=== PATIENT | male | born 1990 | race Caucasian/White ===

== ENCOUNTER 2018-05-16 15:03 | Inpatient (IN) | payer OTHER ==
[~2018-05-16] VITALS: Ht 165.1 cm; Wt 59.0 kg
--- NOTE | 2018-05-16 15:23 | NUR ---
Intake Assessment Assessment done at intake office. Patient does not appear intoxicated. Patient is alert & oriented x4. He presents with a pale skin, multiple scabs on his face, tearful during intake, unshaven, disheveled, avoids eye contact. He has flat affect, anhedonia, and depressed mood. Speech is soft, clear and audible. No complaints of shortness of breath noted. Vitals taken immediately B/P 103/64, HR 95, Resp 16, Pulse Ox 99%, Temp 98.1. Pt is coherent and is able to sign consent & respond to questions appropriately. Explained to pt unit protocols such as Q4H Vitals signs check & regarding destruction of any controlled substances brought to facility and handling of all medications. Pt verbalized understanding.
[2018-05-16] MEDS ORDERED: EMTR1TAB6 PO (15:50)
[2018-05-16] MEDS ORDERED: BIOT1TAB16 PO (15:51)
[2018-05-16] MEDS ORDERED: ESCI20TA PO (15:51)
[2018-05-16] MEDS ORDERED: ALLA20GE TP (15:53)
[2018-05-16] MEDS ORDERED: [UNRECOGNIZED DRUG - CODE] TP (15:53)
[2018-05-16] MEDS ORDERED: FINA5TAB11 PO (15:53)
[2018-05-16 16:04] VITALS: BP 103/64
[2018-05-16 16:11] LABS: *AMPHETAMINE, URINE POSITIVE (NEGATIVE); *BARBITURATE, URINE NEGATIVE (NEGATIVE); *CANNABINOID, URINE POSITIVE (NEGATIVE); *COCCAINE, URINE NEGATIVE (NEGATIVE); *OPIATE, URINE POSITIVE (NEGATIVE); *PHENCYCLIDINE SCREEN,URINE NEGATIVE (NEGATIVE)
--- NOTE | 2018-05-16 16:26 | NUR ---
ADMISSION NOTE: Patient is a 27 y/o male admitted at [facility] Unit for medically supervised withdrawal from ETOH, Benzos, and Opiates. Pt reports using meth and marijuana. Patient on the unit at 1600. Body search done and skin check performed, no contraband found. Skin noted to have tract cohen on bilateral arms, not open. He has a possible infection on his right side back/shoulder. Area red, swollen, skin sloughing, and scabbed. He has multiple scabs on his face. Pt is 5'5" tall and weighs 130 lbs in a standing scale. Pt is cooperative during assessment. Patient is oriented to floor unit and room, educated on proper use of call light with good verbal understanding. Pt reports NKA and wishes to be full Code. Pt not intoxicated and denies withdrawal symptoms. COWS and CIWA deferred. Patient is alert & oriented x4. He appears disheveled, unkempt & uncombed. He presents with a pale skin, multiple scabs on his face, tearful during intake, unshaven, disheveled, avoids eye contact. He has flat affect, anhedonia, and depressed mood. He is tearful and worried about detox since he has been using for 18 months. He has soft and clear speech. No complaints of shortness of breath noted. Bowel sounds active in all quadrants. Last Bowel movement was today 05/16/2018. Lung Sounds clear throughout. Pt denies SOB, cough or chest pain at this time. Pt denies visual, auditory & tactile hallucinations. Pt has a PCP named Dr. Dr. Muro in [facility]. Pt has medical history of anxiety and depression. Pt denies any hx of suicide attempt or involuntary admission to a psychiatric facility. Pt currently denies SI/HI. Blood Labs were drawn. Pt has overdosed twice and did not receive medical care. Pt reports he has blacked out numerous times r/t ETOH and Benzo use. Pt was able to provide urine sample for drug screen upon admission and is voiding clear yellow urine with no problems. Pt has been to [place] in [address] [facility] and [facility] in 2012 in [place]. Substance use: 1. Benzo- Pt uses Xanax intermittently. He last took 3 mg today at 10:00AM. Pt uses Valium 10 mg QHS. He last used last night at 2200. Pt uses Klonopin 2mg daily, he last used yesterday. He has been using benzos for the last 18 months. Pt has used benzos since he was 20 years old. 2. Vodka- Pt drink 480 ml two to three times/week for the last 18 months. He last had 120ml of Vodka about 4 hours ago on the plane. He has been drinking since he was 18 years old. 3. Heroin- Pt uses 1 gram IV daily for the last 18 months. He has used heroin since he was 22 years old. He last used .75 gm today at 10:00AM. 4.Meth- Pt reports he uses meth 1 gram daily via IV for the last 18 months. He last used 1/2 gram today at 10:00AM. He has used meth since he was 22 years old. 5. Marijuana- pt reports he smoke unspecified amount daily since he was 18 years. Old. Pt states "I started drinking and using drugs because my friends did it. Now I'm hooked on the heroin and I continue to use to cope with my anxiety and depression". Pt reports he wants to get sober, "I'm tired of living this life style. My mom helped me get into this detox." Pt reports triggers for relapse are increased cravings. In the past barriers for staying sober were, "I didn't want to get sober. I was forced into treatment when I was younger". His mother is his support system and she is sober. He lives alone and in unemployed. Pt reports consequences of using are he dropped out of school, suffered relationship loss, job loss and made him more depressed. Pt reports he has tried to get sober about 15 times. His longest times being sober was for six months in 2016. Pt plans on going to [facility], getting a sponsor, and going to AA or NA. Fall & Seizure precautions are in place. Continue to follow MD plan of care and offer support and encouragement as needed. MD is aware of Pt admission and orders are placed. Educated patient about plan of care including detox, group therapy, individual therapy, and discharge planning. Encouraged patient to verbalized feelings. Encourage fluids as tolerated. Safety precautions are in place. Bed locked in lowest position. Both side rails padded & up. Call light within pt's reach.
[2018-05-16] MEDS ORDERED: MIRALAX 17 GM POWD.PACK PO PRN ×2 (16:45)
[2018-05-16] MEDS ORDERED: IBUPROFEN 600 MG TABLET PO PRN ×2 (16:45)
[2018-05-16] MEDS ORDERED: HYDROXYZINE PAMOATE 25 MG CAPSULE PO PRN (16:45)
[2018-05-16] MEDS ORDERED: LORAZEPAM 1 MG TABLET PO PRN ×3 (16:45)
[2018-05-16] MEDS ORDERED: diphenhydrAMINE 50 MG CAPSULE PO PRN ×2 (16:45)
[2018-05-16] MEDS ORDERED: METHOCARBAMOL 750 MG TABLET PO PRN (16:45)
[2018-05-16] MEDS ORDERED: ONDANSETRON 4 MG/2 ML VIAL IM PRN ×2 (16:45)
[2018-05-16] MEDS ORDERED: BUPRENORPHINE HCL 2 MG TAB.SUBL SL PRN (16:45)
[2018-05-16] MEDS ORDERED: LOPERAMIDE HCL 2 MG CAPSULE PO PRN ×4 (16:45)
[2018-05-16] MEDS ORDERED: LORAZEPAM 2 MG/1 ML VIAL IM PRN (16:45)
[2018-05-16] MEDS ORDERED: MAGNESIUM HYDROXIDE 30 ML LIQUID UDC PO PRN ×2 (16:45)
[2018-05-16] MEDS ORDERED: MAG HYDROX/AL HYDROX/SIMETH 30 ML LIQUID UDC PO PRN ×2 (16:45)
[2018-05-16] MEDS ORDERED: ACETAMINOPHEN 325 MG TABLET PO PRN ×2 (16:45)
[2018-05-16] MEDS ORDERED: CLONIDINE HCL 0.1 MG TABLET PO PRN ×2 (16:45)
[2018-05-16] MEDS ORDERED: ONDANSETRON ODT 4 MG TAB.RAPDIS SL PRN ×2 (16:45)
[2018-05-16 17:28] LABS: BASOPHILS % (AUTO) 0.6 % (0.0-2.0); EOSINOPHILS # (AUTO) 0.2 K/uL (0.0-0.7); EOSINOPHILS % (AUTO) 5.2 % (0.0-7.0); HEMATOCRIT 38.3 % (36.7-47.1); HEMOGLOBIN 13.5 g/dL (12.5-16.3); LYMPHOCYTES # (AUTO) 1.4 K/uL (20.0-40.0); MEAN CORPUSCULAR HEMOGLOBIN 31.3 uug (23.8-33.4); MEAN CORPUSCULAR HGB CONC 35 g/dL (32.5-36.3); MONOCYTES # (AUTO) 0.5 K/uL (2.0-10.0); MONOCYTES % (AUTO) 14.9 % (0.0-11.0); NEUTROPHILS # (AUTO) 1.5 K/uL (1.8-8.9); NEUTROPHILS % (AUTO) 41.3 % (38.5-71.5); PLATELET COUNT (AUTO) 205 K/uL (152-348); WHITE BLOOD COUNT (AUTO) 3.7 K/uL (3.6-10.2)
[2018-05-16 17:37] LABS: ALANINE AMINOTRANSFERASE 26 U/L (16-63); ALKALINE PHOSPHATASE 70 U/L (50-136); ASPARTATE AMINOTRANSFERASE 16 U/L (15-37); BILIRUBIN,TOTAL 0.4 mg/dL (0.2-1.0); CARBON DIOXIDE 31 mmol/L (21-32); CHLORIDE 103 mmol/L (98-107); CREATININE 0.9 mg/dL (0.6-1.3); GLUCOSE 102 mg/dL (74-106); MAGNESIUM 1.9 mg/dL (1.8-2.4); POTASSIUM 3.9 mmol/L (3.5-5.1); TOTAL PROTEIN, SERUM 6.9 g/dL (6.4-8.2); UREA NITROGEN, BLOOD 11 mg/dL (7-18)
[2018-05-16 17:39] LABS: ETHANOL < 3 MG/DL (0-0)
[2018-05-16 17:45] LABS: THYROID STIMULATING HORMONE 0.638 mIU/mL (0.358-3.740)
--- NOTE | 2018-05-16 18:32 | NUR ---
End of Shift Patient is a 27 yr old male who was admitted for a medically supervised withdrawal from ETOH, Benzos, and opiates, pt also reports using meth. COWS and CIWA deferred r/t recent substance use and Pt denies c/o withdrawal symptoms. PO fluids 500 ml, void x1. All safety measures in place, bed locked, low positions, side rails up X2. Will continue to monitor for withdrawal symptoms. Endorsed to PM shift.
[2018-05-16 20:00] VITALS: BP 97/56
--- NOTE | 2018-05-16 20:00 | NUR ---
Start of Shift Patient was admitted during dayshift for multiple substances, including Alcohol, Benzodiazepines and Opiates. Patient appears melancholic, isolative and emotionally labile. Patient verbalized feelings of guilt for not seeking treatment over the past 18 months while he was dependent on substances. He c/o increasing anxiety and noted to be disheveled. He c/o generalized muscle pain=2/10. He is also noted to have track cohen on bilateral upper extremities and scabbing on his back. He is on PRN medications, 4-day Subutex and 4-day Ativan tapers to start tomorrow. Fall, universal, seizure and safety prec in place. Call light within reach. Last COWS=5, CIWA=5. Will continue to monitor.
[2018-05-17] VITALS: BP 95/63
[2018-05-17 04:00] VITALS: BP 118/74
[2018-05-17] MEDS: HYDROXYZINE PAMOATE 25 MG CAPSULE PO PRN (04:10)
--- NOTE | 2018-05-17 04:15 | NUR ---
PRN Subutex, Ativan, Robaxin and Vistaril Patient woke up and c/o feeling anxious, noted to be emotional, teary-eyed, with gross tremors, nasal congestion and with intermittent nausea. Patient observed to be depressed. No SI noted. Patient also c/o chills and generalized muscle pain=7/10. COWS=14, CIWA=16. Administered Subutex 4 mg SL PRN, Ativan 2 mg PO PRN, Robaxin 750 mg PO PRN and Vistaril 50 mg PO PRN. Will reassess.
--- NOTE | 2018-05-17 04:45 | NUR ---
Subutex reassess Patient appears less anxious, less tremulous and verbalized, "I feel a little better." Patient continues to be emotional. COWS=11.
--- NOTE | 2018-05-17 05:15 | NUR ---
Ativan, Robaxin and Vistaril reassess Patient verbalized that his anxiety was alleviated and he is noted to have less tremors. He also verbalized that his chills has lessened. Current generalized pain level=2-3/10. CIWA=10.
--- NOTE | 2018-05-17 07:16 | NUR ---
End of Shift Patient has started to exhibit and c/o withdrawal symptoms in the later part of the shift. Patient admitted for multiple substances, including Alcohol, Benzodiazepines and Opiates. Patient continues to be melancholic, isolative and emotionally labile. He is teary-eyed, with poor appetite and has a tangential thought process. Patient was encouraged to increase oral fluid intake, eat healthy snacks and finish meals served. He appears disheveled and c/o generalized muscle pain with current pain level 2-3/10. PRN medications Subutex, Ativan, Robaxin and Vistaril were administered and they were effective. 4-day Subutex and 4-day Ativan tapers to start today. Fall, universal, seizure and safety prec in place. Call light within reach. Last COWS=11, CIWA=10 and slept for 11 hours. Endorsed to AM shift nurse for continuity of care.
[2018-05-17 08:00] VITALS: BP 90/60
--- NOTE | 2018-05-17 08:00 | NUR ---
START OF SHIFT Pt is a 27 yr old male, AA&Ox4. Pt was admitted on 05/16/18 for Opiate/Benzo withdrawal and is on 4 day Ativan and 4 day Subutex taper as ordered. Received report from night monitor nurse. pt was given Ativan PRN, Subutex PRN, Robaxin PRN and Vistaril PRN during the night. Last COWS score was 11 and CIWA score was 10. Pt slept for 11 hrs. Pt is currently laying in bed, avoidant in eye contact. Pt is c/o anxiety, agitation, sweats and chill, and body aches. Pt is noted with facial sweats and fine tremors on BUE. Pt was encouraged increase fluid intake for hydration. Safety precautions observed. Will continue to monitor.
[2018-05-17] MEDS ORDERED: TUBERCULIN,PURIF.PROT.DERIV. 5 TU/0.1 ML TEST ID ONE ×2 (09:00)
[2018-05-17] MEDS ORDERED: MULTIVITAMINS,THERAPEUTIC TABLET PO SCH (09:00)
[2018-05-17] MEDS: MULTIVITAMINS,THERAPEUTIC TABLET PO SCH (09:20)
[2018-05-17] MEDS: LORAZEPAM 1 MG TABLET PO SCH ×4 (09:20→20:37)
[2018-05-17] MEDS: BUPRENORPHINE HCL 2 MG TAB.SUBL SL SCH ×3 (09:21→20:37)
[2018-05-17 12:00] VITALS: BP 108/62
[2018-05-17] MEDS: FINASTERIDE 5 MG TABLET PO SCH (13:15)
[2018-05-17] MEDS: [UNRECOGNIZED DRUG - OTHER] PO SCH (14:04)
--- NOTE | 2018-05-17 14:58 | NUR ---
Therapist prompted client to attend all group therapy sessions daily.
[2018-05-17 16:30] VITALS: BP 98/56
[2018-05-17] MEDS ORDERED: 4 DAY TAPER OF LORAZEPAM -SERENITY PROTOCOL PO PRN (16:45)
[2018-05-17] MEDS ORDERED: 4 DAY TAPER BUPRENORPHINE -SERENITY PROTOCOL SL PRN (16:45)
--- NOTE | 2018-05-17 19:10 | NUR ---
END OF SHIFT Pt is a 27 yr old male, AA&Ox4. Pt was observed with increase fatigue and remained in his room throughout the day. Pt states, "I feel depressed and don't want to go to group. I miss my mom and my dog". Pt was observed emotional and crying. Pt was redirect and was able to call his mother with case management. Pt was observed with facial sweats, fine tremors and avoidant in eye contact. Skin is warm and clammy to touch. Pt was seen and examined by Dr. Bertrand with new order for wound consult for open scab on right upper back. Consult is pending. Last COWS score was 11 and CIWA score was 11 Safety precautions observed. Endorsed to manufacturing supervisor 2nd shift nurse to continue with care.
[2018-05-17 20:00] VITALS: BP 105/62
--- NOTE | 2018-05-17 20:00 | NUR ---
Start of Shift Patient is noted to be anxious, emotional, teary-eyed and withdrawn. He is observed to be avoiding conversation and eye contact. He verbalized missing his dog back at his home in [place], [place]. Patient is melancholic and labile. He was a poor appetite and was encouraged to adhere to the meals served as well as increase oral fluid intake. He is noted to have sweats, appears pale and has tremors. He appears disheveled and unkempt. Patient is on 4-day Subutex and 4-day Ativan tapers that started today. Fall, universal, seizure and safety prec in place. Call light within reach. Last COWS=10, CIWA=10. Will continue to monitor.
[2018-05-18] VITALS: BP 96/57
--- NOTE | 2018-05-18 04:00 | NUR ---
COWS and CIWA deferred Patient asleep on bed with no SOB nor facial grimacing noted. RR=14. COWS and CIWA deferred per MD order.
--- NOTE | 2018-05-18 07:20 | NUR ---
End of Shift Patient continues to be anxious, emotional, teary-eyed and withdrawn. He is still withdrawn and is avoidant with conversation. He is teary-eyed and labile. He continues to have a poor appetite. He did not have a dinner last night. He was offered a [place] sandwich and finished half of it. He continues to have sweats, tremors and appears disheveled. Encouraged patient to take a shower this morning. No PRNs administered during the shift. Patient will start second day of his 4-day Subutex and 4-day Ativan tapers. Fall, universal, seizure and safety prec in place. Call light within reach. Last COWS=9, CIWA=9 and slept for 8 hours. Endorsed to PM shift nurse for continuity of care.
[2018-05-18 08:00] VITALS: BP 103/60
--- NOTE | 2018-05-18 08:00 | NUR ---
START OF SHIFT Pt is a 27 yr old male, AA&Ox4. Pt was admitted on 05/16/18 for Opiate/Benzo withdrawal and is on 4 day Ativan and 4 day Subutex taper as ordered. Received report from night order selector nurse. No PRN's were given during the night. Last COWS score was 9 and CIWA score was 9. Pt slept for 8 hrs. Pt is currently laying in bed avoiding eye contact and covering his face the blanket. Pt was observed wtih facial sweats and fine tremors on BUE. Pt c/o abdominal cramping. Pt was encouraged increase fluid intake for hydration. Safety precautions observed. Will continue to monitor.
[2018-05-18 08:07] LABS: HEPATITIS B SURFACE AG Negative (Negative)
[2018-05-18] MEDS: FINASTERIDE 5 MG TABLET PO SCH (09:00)
[2018-05-18] MEDS ORDERED: BUPRENORPHINE HCL 2 MG TAB.SUBL SL SCH (09:00)
[2018-05-18] MEDS ORDERED: LORAZEPAM 1 MG TABLET PO SCH (09:00)
[2018-05-18] MEDS: LORAZEPAM 0.5 MG TABLET PO SCH ×3 (09:17→21:01)
[2018-05-18] MEDS: [UNRECOGNIZED DRUG - OTHER] PO SCH (09:18)
[2018-05-18] MEDS: MULTIVITAMINS,THERAPEUTIC TABLET PO SCH (09:18)
[2018-05-18] MEDS: ESCITALOPRAM OXALATE 10 MG TABLET PO SCH (09:18)
--- NOTE | 2018-05-18 11:34 | NUR ---
PRN GIVEN Pt was c/o abdominal cramping and upset stomach. Pt was given Maalox 30ml suspension. Pt was encouraged increase fluid intake. Will continue to monitor.
[2018-05-18 12:00] VITALS: BP 99/48
--- NOTE | 2018-05-18 12:31 | NUR ---
Therapist prompted client to attend group therapy.
--- NOTE | 2018-05-18 12:34 | NUR ---
PRN RE-ASSESSMENT Maalox PRN was effective. Encouraged increase fluid intake. Will continue to monitor.
--- NOTE | 2018-05-18 14:01 | NUR ---
WOUND CARE CONSULT: PT PRESENTS WITH RT UPPER BACK WOUND, PRESENT ON ADMISSION. RECOMMENDATIONS MADE FOR WOUND CARE AND DISCUSSED WITH NURSING STAFF. WILL SEE PRN. VALDEZ IN AGREEMENT WITH PLAN OF CARE. Addendum: 05/18/18 at 1402 by ROMEO AQUINO RN Amended: Links added.
[2018-05-18] MEDS: BUPRENORPHINE HCL 2 MG TAB.SUBL SL SCH ×2 (14:52→21:01)
[2018-05-18] MEDS: BACITRACIN/POLYMYXIN B OINT 15 GM TUBE TOP SCH (15:11)
[2018-05-18 16:00] VITALS: BP 103/50
--- NOTE | 2018-05-18 19:10 | NUR ---
END OF SHIFT Pt is a 27 yr old male, AA&Ox4. Pt was admitted on 05/16/18 for Opiate/Benzo withdrawal and is on 4 day Subutex taper and 4 day Ativan taper as ordered. Pt has been cooperative with medication regimen and was encouraged to attend group therapy. Pt was c/o increase anxiety, agitation, abdominal cramping and upset stomach, sweats and chills. Pt was observed with facial sweats, flat affect and fine tremors on BUE. Pt was given Maalox PRN as ordered. Medication was effective. Last COWS score was 10 and CIWA score was 11 at 1600. Pt was encouraged increase fluid intake for hydration. Endorsed to rubber tile floor layer nurse to continue with care.
[2018-05-18 20:00] VITALS: BP 110/66
--- NOTE | 2018-05-18 20:00 | NUR ---
Start of Shift Patient is withdrawn, avoids conversation and verbalized preference of being alone. Patient has sweating, bilateral hand tremors and is emotionally labile and continues to verbalize missing his dog back home. Patients appetite is noted to be better today than yesterday, having finished 75% of his dinner. Patient was encouraged to continue to adhere to the meals served as well as increase oral fluid intake. He appears disheveled as well. Patient is on his second day of the 4-day Subutex and 4-day Ativan taper. Fall, universal, seizure and safety prec in place. Call light within reach. Last COWS=9, CIWA=9. Will continue to monitor.
[2018-05-19] VITALS: BP 102/76
--- NOTE | 2018-05-19 04:00 | NUR ---
COWS and CIWA deferred Patient asleep on bed with no SOB nor facial grimacing noted. RR=14. COWS and CIWA deferred per MD order.
--- NOTE | 2018-05-19 07:17 | NUR ---
End of Shift Patient continues to be withdrawn, melancholic and isolative. Patient expressed that he does not want to interact with others at this time. He continues to have sweats, bilateral hand tremors and easily becomes teary-eyed. Patient is noted to have poor appetite. Patient was continuously encouraged to increase food and fluid intake. No PRNs administered during the shift. Patient is on his 3rd day of the 4-day Subutex and 4-day Ativan taper today. Fall, universal, seizure and safety prec in place. Call light within reach. Last COWS=8, CIWA=7 and slept for 7 hours. Endorsed to AM shift nurse for continuity of care.
[2018-05-19 08:00] VITALS: BP 92/58
--- NOTE | 2018-05-19 08:00 | NUR ---
START OF SHIFT Pt is a 27 yr old male, AA&Ox4. Pt was admitted on 05/16/18 for Opiate/Benzo withdrawal and is on 4 day Subutex taper and 4 day Ativan taper as ordered. Received report from maintenance supervisor 2nd shift. No PRN's were given during the night. Last COWS score was 8 and CIWA score was 7. Pt is observed with facial sweats and fine tremors on BUE. Pt is observed with flat affect. Pt was stating of wanting to be discharged earlier than his due date because he states of feeling "bored" and his withdrawal symptoms are minimal. Pt was encouraged to attend group therapy and activities. Safety precautions observed. Will continue to monitor.
[2018-05-19] MEDS ORDERED: LORAZEPAM 1 MG TABLET PO SCH (09:00)
[2018-05-19] MEDS: MULTIVITAMINS,THERAPEUTIC TABLET PO SCH (09:57)
[2018-05-19] MEDS: [UNRECOGNIZED DRUG - OTHER] PO SCH (09:57)
[2018-05-19] MEDS: LORAZEPAM 0.5 MG TABLET PO SCH ×2 (09:58→21:26)
[2018-05-19] MEDS: ESCITALOPRAM OXALATE 10 MG TABLET PO SCH (09:58)
[2018-05-19] MEDS: BUPRENORPHINE HCL 2 MG TAB.SUBL SL SCH ×3 (09:58→21:26)
[2018-05-19] MEDS: BACITRACIN/POLYMYXIN B OINT 15 GM TUBE TOP SCH (09:59)
[2018-05-19 12:00] VITALS: BP 119/76
[2018-05-19 16:00] VITALS: BP 113/68
--- NOTE | 2018-05-19 19:20 | NUR ---
END OF SHIFT Pt is a 27 yr old male, AA&Ox4. Pt was admitted on 05/16/18 for Opiate/Benzo withdrawal and is on 4 day Subutex taper and 4 day Ativan taper as ordered. Pt was asking to be discharge earlier than due date but was spoken to Dr. Bertrand and encouraged him to complete treatment as plan. Pt agreed. Pt was observed attending group therapy. Pt was observed with increase anxiety m/b difficulty staying still. Pt was observed with facial sweats, flat affect and fine tremors on BUE. No PRNs were given during the day. Last COWS score was 8 and CIWA score was 9 at 1600. Pt was encouraged increase fluid intake for hydration. Endorsed to night time babysitter nurse to continue with care.
[2018-05-19 20:00] VITALS: BP 126/71
--- NOTE | 2018-05-19 20:00 | NUR ---
Start of Shift Patient is noted to be more interactive but verbalized intermittent bursts of emotions. Patient continues to be melancholic and is labile. He is observed to have bilateral hand tremors and is anxious. Patients appetite continues to improve and he finished 75% of meal served this evening. Emphasized on patient the importance of appropriate food and fluid intake for recovery. Patient is on 3rd day of his Subutex and Ativan tapers. Fall, universal, seizure and safety prec in place. Call light within reach. Last COWS=8, CIWA=8. Will continue to monitor.
[2018-05-20] VITALS: BP 118/74
--- NOTE | 2018-05-20 04:00 | NUR ---
COWS and CIWA Deferred Patient asleep on bed, with no SOB nor facial grimacing noted. COWS and CIWA deferred per MD order. RR=15.
--- NOTE | 2018-05-20 07:27 | NUR ---
End of Shift Patient is noted to become more engaging with conversation. Patient identifies depression as one of his major withdrawal symptoms. He continues to be emotionally labile but observed to be less intense as compared to the day of admission. He is observed to have bilateral hand tremors and with erratic episodes of anxiety. Educated patient about useful therapeutic tools which facilitate expression of feelings. Patient is on 4th day of his 4-day Subutex and 4-day Ativan tapers. Fall, universal, seizure and safety prec in place. Call light within reach. Last COWS=7, CIWA=6 and slept for 7 hours. Endorsed to AM shift nurse for continuity of care.
--- NOTE | 2018-05-20 07:30 | NUR ---
Start of Shift notes: Received endorsement from night nurse. Patient is a 27 year old male admitted for opiate/BZO/ETOH withdrawal who was placed on a 5-day Ativan and 4-day Subutex taper as ordered. No adverse reactions noted. Per night report, patient was not given any PRNs. Last . Slept for a total of 7 hours. Received patient in his room. Room appears messy. Clothes are all over the floor. He covers his face with a blanket intermittently. He is seen with eyes closed but arousable when his name is called. Appears flushed, disheveled and unkempt. Noted with restlessness and gross tremors to BUE. He also appears anxious, agitated and irritable. Educated patient on his current plan of care for the day and his medication regimen. Encouraged oral fluid intake and encouraged group participation to learn new skills to prevent relapse. All needs met and attended. Will continue to monitor.
[2018-05-20 08:00] VITALS: BP 93/51
[2018-05-20] MEDS: [UNRECOGNIZED DRUG - OTHER] PO SCH (08:56)
[2018-05-20] MEDS: ESCITALOPRAM OXALATE 10 MG TABLET PO SCH (08:57)
[2018-05-20] MEDS: BACITRACIN/POLYMYXIN B OINT 15 GM TUBE TOP SCH (08:57)
[2018-05-20] MEDS: MULTIVITAMINS,THERAPEUTIC TABLET PO SCH (08:57)
[2018-05-20] MEDS ORDERED: LORAZEPAM 1 MG TABLET PO SCH (09:00)
[2018-05-20] MEDS ORDERED: BUPRENORPHINE HCL 2 MG TAB.SUBL SL SCH (09:00)
[2018-05-20] MEDS ORDERED: LORAZEPAM 0.5 MG TABLET PO SCH (09:00)
[2018-05-20 12:00] VITALS: BP 100/62
[2018-05-20 16:00] VITALS: BP 106/68
--- NOTE | 2018-05-20 19:12 | NUR ---
End of Shift Notes: Patient completed his 4-day Ativan and 4-day Subutex taper as ordered. No adverse reactions noted. VS monitored closely. No significant abnormalities noted. Withdrawal symptoms were closely monitored. Initial COWS 9/CIWA 11, patient presented with gross tremors, intermittent perspiration, restlessness, irritability, chills, hot flashes, and generalized discomfort. Last COWS 7/CIWA 9. Patient verbalizes that Subutex and Ativan has been effective in reducing his withdrawal symptoms. He was able to participate in group and activities despite his withdrawal symptoms. Appetite good. All needs met and attended. Will continue to monitor closely.
[2018-05-20] MEDS: HYDROXYZINE PAMOATE 25 MG CAPSULE PO PRN (19:45)
--- NOTE | 2018-05-20 19:45 | NUR ---
Start of Shift Patient Received. Per endorsement, patient is a 27 year old male that has completed a modified 4 day Ativan and 4 day Subutex taper. Patient is set for discharge tomorrow 05/21/18 to [facility]. No PRN medications administered. Wound treatment continues to right shoulder. Last noted COWS 7 and CIWA 9. Upon rounds patient is noted in bed sleeping but was easily awakened to verbal stimuli. Patient is noted with increased anxiety, emotionally labile, agitated, and tremulous. PRN Vistaril administered. Patient requested to go out to smoking patio with peers. All needs attended to promptly. Will continue plan of care as ordered.
[2018-05-20 20:06] VITALS: BP 122/70
--- NOTE | 2018-05-20 20:45 | NUR ---
PRN Medication Reassessment Patient is noted returning from smoking patio. Patient is able to verbalize "the medication helped calm me down." PRN Vistaril noted to be effective. Will continue to monitor.
--- NOTE | 2018-05-21 00:28 | NUR ---
COWS, CIWA, and Vitals Patient is noted in bed with eyes closed. Breathing even and non labored. No signs of restlessness or facial grimacing noted. Patient refused vitals. CIWA and COWS not able to be completed as per order. Will continue to monitor.
--- NOTE | 2018-05-21 04:20 | NUR ---
COWS and CIWA Assessment Patient is noted in bed with eyes closed. Breathing even and non labored. Patient refused vitals. NO signs of restlessness or facial grimacing noted. CIWA and COWS not able to be completed as per order. Will continue to monitor.
--- NOTE | 2018-05-21 06:52 | NUR ---
End of Shift Patient is noted in bed with eyes closed. Breathing even and non labored. No signs of restlessness or facial grimacing noted. Patient is a 27 year old male that has completed a modified 4 day Ativan and 4 day Subutex taper. Patient is set for discharge today 05/21/18 to [facility]. Patient continued to be monitored for increased signs and symptoms of withdrawal which include anxiety, agitation, chills, sweats, and tremors. Patient was noted to be emotionally labile. Patient received PRN Vistaril with medication noted to be effective. Last noted COWS 7 and CIWA 10. Patient noted to sleep a total of 7 hours. Wound treatment continues to right shoulder. All needs attended to promptly. Will endorse to continue plan of care as ordered.
--- NOTE | 2018-05-21 07:30 | NUR ---
Start of shift note; Received report from night nurse. Patient is a 27 year old male admitted on 05/16/18 for Opiate/ Benzodiazepine and ETOH withdrawals. Patient completed 4 day Ativan and 4 day Subutex taper. Patient is AOx4, presented with anxiety, complaining of muscle aches and intermittent sweats. Patient is medically cleared for discharge per MD. Patient to transfer to [facility]. All safety measures secured. Will continue to monitor patient.
[2018-05-21 08:00] VITALS: BP 110/62
[2018-05-21] MEDS: BACITRACIN/POLYMYXIN B OINT 15 GM TUBE TOP SCH (08:36)
[2018-05-21] MEDS: [UNRECOGNIZED DRUG - OTHER] PO SCH (08:36)
[2018-05-21] MEDS: ESCITALOPRAM OXALATE 10 MG TABLET PO SCH (08:36)
[2018-05-21] MEDS: MULTIVITAMINS,THERAPEUTIC TABLET PO SCH (08:36)
[2018-05-21] MEDS ORDERED: NALO4SPR NS (09:25)
--- NOTE | 2018-05-21 09:58 | NUR ---
Discharge note; Patient is AOX4, patient completed treatment without any adverse reactions. Patient is medically cleared for discharge to be transferred to [facility]. All valuables, belongings, prescriptions, medications given to patient. Patient was escorted out of the facility by BONE CHAR KILN OPERATOR. Patient denies any suicidal ideations. Patient left in a stable condition. Met all needs.
== END 2018-05-21 09:58 | disposition other institution (70) | DRG 895 ==
LOC: SRC 15:03
PROVIDERS: ADMIT Internal Medicine; ATTEND Family Medicine Addiction Medicine
PROC: HZ2ZZZZ Detoxification Services for Substance Abuse Treatment (ICD-10-PCS; principal; 2018-05-16)
PROC: HZ31ZZZ Individual Counseling for Substance Abuse Treatment, Behavioral (ICD-10-PCS; 2018-05-18)
PROC: HZ41ZZZ Group Counseling for Substance Abuse Treatment, Behavioral (ICD-10-PCS; 2018-05-19)
DX: F10.230 Alcohol dependence with withdrawal, uncomplicated (principal); F33.2 Major depressive disorder, recurrent severe without psychotic features; F11.23 Opioid dependence with withdrawal; Y90.0 Blood alcohol level of less than 20 mg/100 ml; F13.230 Sedative, hypnotic or anxiolytic dependence with withdrawal, uncomplicated; F15.23 Other stimulant dependence with withdrawal; F12.10 Cannabis abuse, uncomplicated; Z79.899 Other long term (current) drug therapy; S40.211A Abrasion of right shoulder, initial encounter; X58.XXXA Exposure to other specified factors, initial encounter; Y92.89 Other specified places as the place of occurrence of the external cause; F41.9 Anxiety disorder, unspecified
CPT/HCPCS: 36415; 70030-TC; 80307; 80324; 80346; 80349; 80361; 83735; 84443; 85025; 86580; 86592; 86705; 86803; 87340; 87806; A4663; G0480